=== PATIENT | female | born 1950 ===

== ENCOUNTER → 2022-06-13 | Emergency (ER) | payer OTHER ==
[~2022-06-13] VITALS: Ht 152.4 cm; Wt 66.7 kg
[~2022-06-13] MED LIST: ATORVASTATIN CA40 MG PO; CARVEDILOL3.125 M1 PO; FAMOTIDINE20 MG PO; FOLIC ACID1 MG PO; LEVSIN/SL0.125 MG SL; LISINOPRIL10 MG PO; NORFLEX30 MG/ML; ONDANSETRON ODT4 MG PO; ORPH100T PO; PEPCID40 MG PO; PERCOCET 5/321 UDTAB PO; PROPRANOLOL HCL10 MG PO; TRAMADOL HCL50 MG PO
== END | disposition home or self-care (01) ==
LOC: ER 18:25
DX: R10.13 Epigastric pain (principal); I10 Essential (primary) hypertension; D15.1 Benign neoplasm of heart; Z88.6 Allergy status to analgesic agent; Z88.0 Allergy status to penicillin